=== PATIENT | male | born 2000 | race Caucasian/White ===

== ENCOUNTER 2021-10-13 08:27 | Emergency (ER) | payer OTHER ==
[2021-10-13] MEDS ORDERED: Tetracaine 0.5% PF 4 ML BOT ONE (08:45)
[2021-10-13] MEDS ORDERED: Fluorescein Opthalmic Strip ONE (08:45)
== END 2021-10-13 09:13 | disposition home or self-care (01) ==
LOC: CSHERS 08:27
DX: H10.9 Unspecified conjunctivitis (principal)
CPT/HCPCS: 99283